=== PATIENT | female | born 1970 | race Caucasian/White ===

== ENCOUNTER 2018-01-15 14:48 | Emergency (ER) | payer OTHER ==
[~2018-01-15] VITALS: Ht 160 cm; Wt 52.8 kg
[~2018-01-15 14:48] MED LIST: AMOXICILLIN 50500 MG PO; CIPRO500 MG PO; CIPROFLOXIN HC2.5 M1 OTIC; IBUPROFEN 600600 M1 PO; NORCO 5-325 TA1 EAC1 PO; NORCO 5-325 TA1 EACH PO
[2018-01-15] MEDS ORDERED: PREDNISONE 20 M20 M1 PO (15:05)
[2018-01-15] MEDS ORDERED: ZYRTEC 10 MG TA10 MG PO (15:05)
[2018-01-15] MEDS ORDERED: PEPCID40 MG PO (15:05)
[2018-01-15 15:56] VITALS: BP 112/68
== END 2018-01-15 15:58 | disposition home or self-care (01) ==
LOC: M.ERS 14:48
DX: L50.9 Urticaria, unspecified (principal); M06.9 Rheumatoid arthritis, unspecified; Z88.2 Allergy status to sulfonamides; Z88.6 Allergy status to analgesic agent; Z86.19 Personal history of other infectious and parasitic diseases

== ENCOUNTER 2018-04-01 15:25 | Emergency (ER) | payer OTHER ==
[~2018-04-01] VITALS: Ht 160 cm; Wt 49.9 kg
[~2018-04-01 15:25] MED LIST changes: +PEPCID40 MG PO; +PREDNISONE 20 M20 M1 PO; +ZYRTEC 10 MG TA10 MG PO
[2018-04-01] MEDS ORDERED: VENTOLIN HFA 1818 GM INH (16:44)
[2018-04-01] MEDS ORDERED: ROBITUSSIN100 MG/53 PO (16:44)
[2018-04-01 17:04] VITALS: BP 128/84
== END 2018-04-01 17:05 | disposition home or self-care (01) ==
LOC: M.ERS 15:25
DX: J40 Bronchitis, not specified as acute or chronic (principal); J02.9 Acute pharyngitis, unspecified

== ENCOUNTER 2018-05-27 15:44 | Inpatient (IN) | payer OTHER ==
[~2018-05-27] VITALS: Ht 160 cm; Wt 49.9 kg
[~2018-05-27 15:44] MED LIST changes: +ROBITUSSIN100 MG/53 PO; +VENTOLIN HFA 1818 GM INH
[2018-05-27 15:55] VITALS: BP 133/72
[2018-05-27 16:28] LABS: ABSOLUTE EOSINOPHILS 0.1 thou/uL (0.0-0.7); ABSOLUTE LYMPHOCYTES 1.3 thou/uL (0.8-5.3); ABSOLUTE MONOCYTES 1.1 thou/uL (0.0-1.2); BASOPHILS 0.6 %; HEMATOCRIT 39.7 % (37.0-47.0); HEMOGLOBIN 13.8 gm/dL (12.0-15.0); LYMPHOCYTES 19.9 %; MCH 29.3 pg (26.0-34.0); MCHC 34.6 g/dL (28.0-37.0); MCV 84.6 fL (80.0-100.0); MONOCYTES 16.7 %; MPV 9.3 fl. (7.2-11.1); NUCLEATED RBCS 0 /100WBC; PLATELET COUNT* 172 thou/uL (150-400); POLYS 61.8 %; RDW-CV 14.2 % (10.5-14.5); WBC 6.5 thou/uL (4.0-11.0)
[2018-05-27 16:35] LABS: ANION GAP 10 mmol/L (7-16); BUN 16 mg/dL (7-18); CALCIUM 8.6 mg/dL (8.5-10.1); CHLORIDE 101 mmol/L (98-107); CO2 25 mmol/L (21-32); CREATININE 0.8 mg/dL (0.6-1.3); GLUCOSE 89 mg/dL (70-99); POTASSIUM 3.6 mmol/L (3.5-5.1); SODIUM 136 mmol/L (136-145)
[2018-05-27 16:42] LABS: ALKALINE PHOSPHATASE 69 U/L (46-116); SGOT 27 U/L (15-37); SGPT 24 U/L (30-65); TOTAL BILIRUBIN 0.3 mg/dL (<0.1-1.0); TOTAL PROTEIN 7.2 g/dL (6.4-8.2); TROPONIN-I LEVEL <0.06 ng/mL (<0.06)
[2018-05-27 16:48] LABS: INFLUENZA B ANTIGEN None Detected (None Detect)
[2018-05-27 18:35] LABS: BE -2.2 mmol/L (-2 to +3); HCO3 21.5 mmol/L (22.0-26.0); PO2 78.6 mmHg (75.0-100.0); pH 7.419 (7.340-7.450)
[2018-05-27 21:54] VITALS: BP 108/58
--- NOTE | 2018-05-28 08:59 | EKG ---
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
[2018-05-28 09:00] VITALS: BP 136/82
--- NOTE | 2018-05-28 14:44 | NUR ---
Pt was asleep when CM went to assess, will f/u later
[2018-05-28 16:00] VITALS: BP 136/78
--- NOTE | 2018-05-28 18:35 | NUR ---
PT TRANSFERRED TO 309 AT 1742 FROM 207. ASSUMED CARE. PT IS ALERT AND ORIENTED X4. PT IS COMFORTABLE AND HAS NO OTHER CONCERNS. SEE ASSESSMENT AND VITALS FOR OTHER DETAILS. CALL LIGHT WITHIN REACH, WILL CONTINUE PLAN OF CARE
[2018-05-28 20:18] VITALS: BP 126/73
[2018-05-28 23:01] LABS: AMP/METHAMP Negative (Negative); BARBITURATES Negative (Negative); BENZODIAZEPINES Negative (Negative); COCAINE Negative (Negative); METHADONE Negative (Negative); OPIATES Negative (Negative); PCP Negative (Negative); THC POSITIVE (Negative)
--- NOTE | 2018-05-29 05:52 | NUR ---
PT HAD C/O BODY ACHES AT THE BEGINNING OF SHIFT AND ONLY HAD TYLENOL AVAILABLE BUT STATED THAT IT MAKES HER SWELL. NEW ORDER RECEIVED FOR IBUPROFEN. ONE DOSE WAS GIVEN WHICH RELIEVED THE PAIN. AROUND 2300 PT BECAME ANXIOUS AND AGITATED STATING THAT SHE REALLY WANTED TO SMOKE. OFFERED TO SEE ABOUT GETTING A NICOTINE PATCH BUT PT DECLINED. ASSISTED PT WITH SOME DEEP BREATHING/RELAXATION EXERCISES. PT WAS ABLE TO CALM DOWN AND WAS ABLE TO SLEEP THE REST OF THE NIGHT. SHE REFUSED TO HAVE HER LABS DRAWN WHEN LAB CAME BY. THEY SAID THEY WILL TRY AGAIN AROUND 0700.
[2018-05-29 08:00] VITALS: BP 115/81
[2018-05-29 09:34] LABS: ABSOLUTE LYMPHOCYTES 2.4 thou/uL (0.8-5.3); ABSOLUTE NEUTROPHILS 6.2 thou/uL (1.6-8.1); BASOPHILS 0.2 %; EOSINOPHILS 0.2 %; HEMATOCRIT 38.2 % (37.0-47.0); HEMOGLOBIN 13.3 gm/dL (12.0-15.0); LYMPHOCYTES 24.7 %; MCH 29.3 pg (26.0-34.0); MCHC 34.8 g/dL (28.0-37.0); MCV 84.3 fL (80.0-100.0); MONOCYTES 10.7 %; MPV 9.2 fl. (7.2-11.1); NUCLEATED RBCS 0 /100WBC; PLATELET COUNT* 212 thou/uL (150-400); POLYS 64.2 %; RBC 4.53 mil/uL (4.20-5.00); RDW-CV 14.2 % (10.5-14.5); WBC 9.7 thou/uL (4.0-11.0)
[2018-05-29 09:45] LABS: CALCIUM 8.2 mg/dL (8.5-10.1); CREATININE 0.8 mg/dL (0.6-1.3); POTASSIUM 3.1 mmol/L (3.5-5.1)
[2018-05-29] MEDS ORDERED: CEFDINIR300 MG PO (13:02)
[2018-05-29] MEDS ORDERED: OSELB75 PO (13:02)
[2018-05-29] MEDS ORDERED: AZITHROMYCIN 2250 MG PO (13:02)
[2018-05-29] MEDS ORDERED: VENTOLIN HFA 1818 GM INH (13:03)
[2018-05-29] MEDS ORDERED: PREDNISONE 20 M20 MG PO (13:03)
[2018-05-29] MEDS ORDERED: ATROVENT HFA14 GM INH (13:04)
[2018-05-29 13:47] VITALS: BP 115/81
--- NOTE | 2018-05-29 14:30 | NUR ---
DISCHARGE NOTE - REVIEWED DISCHARGE PAPERS WITH PT. NO QUESTIONS. REMOVED IV WITHOUT DIFFICULTY. ALL BELONGINGS SENT C PT.
== END 2018-05-29 14:25 | disposition home or self-care (01) | DRG 177 ==
LOC: M.ERS 15:44 → M.TBA-ER 18:36 → M.2W 18:36 → M.3W 05-28 17:42
PROVIDERS: Family Medicine; Nurse Practitioner Family; ADMIT Internal Medicine
DX: J10.08 Influenza due to other identified influenza virus with other specified pneumonia (principal); J96.01 Acute respiratory failure with hypoxia; J15.6 Pneumonia due to other Gram-negative bacteria; E44.1 Mild protein-calorie malnutrition; Z68.1 Body mass index [BMI] 19.9 or less, adult; M06.9 Rheumatoid arthritis, unspecified; F17.210 Nicotine dependence, cigarettes, uncomplicated; J44.1 Chronic obstructive pulmonary disease with (acute) exacerbation; J44.0 Chronic obstructive pulmonary disease with (acute) lower respiratory infection; Z86.19 Personal history of other infectious and parasitic diseases; Z88.2 Allergy status to sulfonamides; Z88.8 Allergy status to other drugs, medicaments and biological substances; Z80.0 Family history of malignant neoplasm of digestive organs; Z80.8 Family history of malignant neoplasm of other organs or systems; Z79.899 Other long term (current) drug therapy

== ENCOUNTER 2018-06-04 07:31 | Emergency (ER) | payer OTHER ==
[~2018-06-04] VITALS: Ht 160 cm; Wt 49.9 kg
[~2018-06-04 07:31] MED LIST changes: +ATROVENT HFA14 GM INH; +AZITHROMYCIN 2250 MG PO; +CEFDINIR300 MG PO; +OSELB75 PO; +PREDNISONE 20 M20 MG PO
[2018-06-04] MEDS ORDERED: PREDNISONE50 MG PO (08:27)
[2018-06-04] MEDS ORDERED: IPRAT-ALBUT 0.5-3 ML INH (08:27)
[2018-06-04 08:37] LABS: MPV 8.8 fl. (7.2-11.1); WBC 11.1 thou/uL (4.0-11.0)
[2018-06-04 08:39] LABS: HEMATOCRIT 41.7 % (37.0-47.0); HEMOGLOBIN 14.4 gm/dL (12.0-15.0); MCH 29.4 pg (26.0-34.0); MCHC 34.6 g/dL (28.0-37.0); NUCLEATED RBCS 0 /100WBC; PLATELET COUNT* 434 thou/uL (150-400); RBC 4.91 mil/uL (4.20-5.00); RDW-CV 14.3 % (10.5-14.5)
[2018-06-04 08:46] LABS: ANION GAP 8 mmol/L (7-16); BUN 25 mg/dL (7-18); CALCIUM 8.9 mg/dL (8.5-10.1); CHLORIDE 103 mmol/L (98-107); CO2 27 mmol/L (21-32); CREATININE 0.8 mg/dL (0.6-1.3); GLUCOSE 111 mg/dL (70-99); POTASSIUM 3.9 mmol/L (3.5-5.1); SODIUM 138 mmol/L (136-145)
[2018-06-04 08:57] LABS: ALBUMIN 3.1 g/dL (3.4-5.0); ALKALINE PHOSPHATASE 70 U/L (46-116); NT-PRO BRAIN NAT PEPTIDE 41 pg/mL (<300); SGOT 21 U/L (15-37); SGPT 34 U/L (30-65); TOTAL BILIRUBIN 0.2 mg/dL (<0.1-1.0); TOTAL PROTEIN 7.5 g/dL (6.4-8.2); TROPONIN-I LEVEL <0.06 ng/mL (<0.06)
[2018-06-04 09:55] VITALS: BP 114/72
[2018-06-04 10:19] LABS: ABSOLUTE BASOPHILS 0.6 thou/uL (0.0-0.2); ABSOLUTE EOSINOPHILS 0.1 thou/uL (0.0-0.7); ABSOLUTE LYMPHOCYTES 2.1 thou/uL (0.8-5.3); ABSOLUTE MONOCYTES 0.9 thou/uL (0.0-1.2); ABSOLUTE NEUTROPHILS 7.4 thou/uL (1.6-8.1)
[2018-06-04 10:21] LABS: PLATELET ESTIMATE INCREASED
--- NOTE | 2018-06-04 10:53 | EKG ---
[place] [address] ELECTROCARDIOGRAM REPORT Name: ISAÍAS SYKES Alok Room: [facility]#: [id number] Admission: 06/04/18 Attend Phys: Discharge: 06/04/18 Date of : 68 Report #: [id number] THIS REPORT FOR: //name// 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
== END 2018-06-04 09:55 | disposition home or self-care (01) ==
LOC: M.ERS 07:31
PROVIDERS: Emergency Medicine Emergency Medical Services
DX: J11.1 Influenza due to unidentified influenza virus with other respiratory manifestations (principal); M06.9 Rheumatoid arthritis, unspecified; F17.210 Nicotine dependence, cigarettes, uncomplicated; Z88.2 Allergy status to sulfonamides; Z88.6 Allergy status to analgesic agent; Z86.19 Personal history of other infectious and parasitic diseases